=== PATIENT | male | born 1955 | race Two or more races ===

== ENCOUNTER 2022-07-27 22:32 | Inpatient (IN) | payer MEDICARE, OTHER ==
[~2022-07-27] VITALS: Ht 170.2 cm; Wt 46.7 kg
--- NOTE | 2022-07-27 22:36 | NUR ---
BIBRA78. SOB DESATURATION 84 ON RA PER EMS. 93% ON NRB 15LPM. PATIENT ALERT AND ORIENTED X2. BROUGHT IN BY STRETCHER. IN BED 07 ON MONITOR AND POX, AWAITING MD BUSTAMANTE.
--- NOTE | 2022-07-27 22:42 | NUR ---
COVID SWAB COLLECTED
--- NOTE | 2022-07-27 22:42 | NUR ---
BLOOD AND CULTURES COLLECTED
--- NOTE | 2022-07-27 22:42 | NUR ---
IV LINE ESTABLISHED. [id number]
--- NOTE | 2022-07-27 22:43 | NUR ---
RT AT BEDSIDE
--- NOTE | 2022-07-27 22:45 | NUR ---
URINE COLLECTED AND SENT TO LAB
[2022-07-27 23:19] LABS: BASOPHILS % (AUTO) 0.1 % (0.0-2.0); EOSINOPHILS % (AUTO) 0.1 % (0.0-6.0); HEMATOCRIT 36 % (39-51); HEMOGLOBIN 11.5 g/dL (13.5-17.5); LYMPHOCYTES % (AUTO) 33.4 % (20.0-44.0); MEAN CORPUSCULAR HGB CONC 32 g/dl (31.0-36.0); MEAN CORPUSCULAR VOLUME 79 fL (80-96); MONOCYTES # (AUTO) 0.1 K/uL (0.1-1.30); MONOCYTES % (AUTO) 4.3 % (2.0-12.0); NEUTROPHILS # (AUTO) 1.9 K/uL (1.8-8.9); NEUTROPHILS % (AUTO) 62.1 % (43.0-81.0); PLATELET COUNT (AUTO) 324 K/uL (150-450); RED BLOOD CELL COUNT(AUTO) 4.62 MIL/uL (4.5-6.0)
[2022-07-27 23:20] LABS: BILIRUBIN,URINE SMALL (NEGATIVE); COLOR,URINE DARK YELLOW (YELLOW); LEUKOCYTE ESTERASE ,URINE NEGATIVE (NEGATIVE); NITRITE, URINE NEGATIVE (NEGATIVE); PROTEIN,URINE 100 mg/dl (NEGATIVE); UGLUCOSE NEGATIVE (NEGATIVE)
--- NOTE | 2022-07-27 23:32 | NUR ---
LA 5.7
[2022-07-27 23:42] LABS: ALANINE AMINOTRANSFERASE 16 U/L (12-78); ALBUMIN 2.4 g/dL (3.4-5.0); ALKALINE PHOSPHATASE 57 U/L (46-116); ASPARTATE AMINOTRANSFERASE 21 U/L (15-37); BILIRUBIN,DIRECT 0.4 mg/dL (0.0-0.2); CALCIUM, SERUM 9.2 mg/dL (8.5-10.1); CARBON DIOXIDE 20 mmol/L (21-32); CHLORIDE 106 mmol/L (98-107); CREATININE 1.8 mg/dL (0.6-1.3); GLUCOSE 147 mg/dL (74-106); POTASSIUM 3.8 mmol/L (3.5-5.1); SODIUM SERUM 142 mmol/L (136-145); TOTAL PROTEIN, SERUM 7.2 g/dL (6.4-8.2); UREA NITROGEN, BLOOD 46 mg/dL (7-18)
[2022-07-27] MEDS ORDERED: VANCOMYCIN 1 GM VIAL ONE (23:53)
[2022-07-27] MEDS ORDERED: PIPERACILLIN /TAZOBACTAM 3.375 G VIAL IV ONE (23:53)
--- NOTE | 2022-07-27 23:53 | NUR ---
COVID PCR DONE AND SENT TO LAB
--- NOTE | 2022-07-27 23:56 | NUR ---
DR DYER PAGED PER DR GUTNER.
[2022-07-28] MEDS ORDERED: PIPERACILLIN /TAZOBACTAM 3.375 G in IV D5W 50 ML IV ONE ×2
[2022-07-28] MEDS ORDERED: VANCOMYCIN 1 GM in IV D5W 250 ML IV ONE ×2
[2022-07-28] MEDS ORDERED: AMIN30LI2 PO (00:27)
[2022-07-28] MEDS ORDERED: GABA-532 PO (00:27)
[2022-07-28] MEDS ORDERED: MELA3CAP2 PO (00:27)
[2022-07-28] MEDS ORDERED: ACET325T53 PO (00:27)
[2022-07-28] MEDS ORDERED: INSU100V39 SQ (00:27)
[2022-07-28] MEDS ORDERED: TICA90TA PO (00:27)
[2022-07-28] MEDS ORDERED: HYDR-4303 PO (00:27)
[2022-07-28] MEDS ORDERED: CHOL100040 PO (00:27)
[2022-07-28] MEDS ORDERED: METF-440 PO (00:27)
[2022-07-28] MEDS ORDERED: LORA10TA7 PO (00:27)
[2022-07-28] MEDS ORDERED: ASPI-1169 PO (00:27)
[2022-07-28] MEDS ORDERED: APIX5TAB PO (00:27)
[2022-07-28] MEDS ORDERED: ATOR40TA PO (00:27)
[2022-07-28] MEDS ORDERED: ONDA4TAB11 PO (00:27)
--- NOTE | 2022-07-28 00:34 | NUR ---
DR DYER REPAGED PER DR GUNTER.
[2022-07-28] MEDS ORDERED: ALBUTEROL FS 2.5 MG/0.5 ML VIAL.NEB NEB PRN (01:30)
[2022-07-28] MEDS ORDERED: ACETAMINOPHEN 325 MG TABLET PO PRN (01:30)
[2022-07-28] MEDS ORDERED: Z GUARD REMEDY 4 OZ OINT TP PRN (01:30)
[2022-07-28] MEDS ORDERED: ZOLPIDEM TARTRATE 5 MG TABLET PO PRN (01:30)
[2022-07-28] MEDS ORDERED: DEXTROSE 50%-WATER 50 ML DISP.SYRIN IV PRN (01:30)
[2022-07-28] MEDS ORDERED: MAG HYDROX/AL HYDROX/SIMETH 30 ML UDC PO PRN (01:30)
[2022-07-28] MEDS ORDERED: ONDANSETRON HCL/PF 4 MG/2 ML VIAL IVP PRN (01:30)
[2022-07-28] MEDS ORDERED: MAGNESIUM HYDROXIDE 30 ML UDC PO PRN (01:30)
--- NOTE | 2022-07-28 02:22 | NUR ---
ROOM 104
[2022-07-28 02:33] LABS: BACTERIA,URINE Rare /HPF (None Seen); RBC,URINE TOO NUMEROUS TO COUN /HPF (0-2); SQUAMOUS EPITHELIAL CELL,UR Few /HPF (None Seen)
--- NOTE | 2022-07-28 02:56 | NUR ---
report given to elly reyes
[2022-07-28 02:59] LABS: BAND % (MANUAL) 2 % (0.0-5.0); BASOPHILS % (MANUAL) 0 % (0.0-2.0); EOSINOPHILS % (MANUAL) 0 % (0-4); LYMPHOCYTES % (MANUAL) 31 % (16-48); MONOCYTES % (MANUAL) 4 % (0-11.0); NEUTROPHILS % (MANUAL) 63 (42-76)
--- NOTE | 2022-07-28 03:10 | NUR ---
RN NOTES; PT RECEIVED FROM ER WITH JOSELUIS IN RM 104 NOTED 8L O2 VIA NC EN WELL SATTING 97.4%,AOX1-2 WITH CONFUSION.NO SIGN SOB/DISTRESS NOTED.NO COMPLAINE OF PAIN/DISCOMFORT AT THIS TIME,IV ACCESS ON RFA 18G AND LAC 18G.INTACT AND PATENT.NO SWOLLEN OR BLEEDING NOTED.SAFETY MEASURED INPLACE,CALL LIGHT WITHIN REACH,WILL CONTINUE TO MONITOR.
--- NOTE | 2022-07-28 03:20 | NUR ---
PATIENT TRANSFERRED UNDER ACLS
[2022-07-28 04:00] VITALS: BP 114/66
[2022-07-28] MEDS: IV NS 0.9% 1,000 ML IV PRN (04:51)
[2022-07-28] MEDS ORDERED: PIPERACILLIN /TAZOBACTAM 3.375 G VIAL IV ONE (04:53)
[2022-07-28] MEDS ORDERED: ZOSYN IVPB 3.375 G in IV D5W 50ml IV ONE (06:00)
--- NOTE | 2022-07-28 06:43 | NUR ---
RN CLOSING NOTES; PT IN BED SLEEPING BUT EASY TO AROUSED,ON 8L O2 VIA NC EN WELL NO SIGN SOB/DISTRESS NOTED.DUE MEDS GIVEN ORDER,ALL NEEDS ATTENDED,IV ACCESS ON RFA 18G AND LAC 18G.INTACT AND PATENT.SAFETY MEASURED INPLACE,CALL LIGHT WITHIN REACH,WILL ENDORSED TO NEXT SHIFT.
--- NOTE | 2022-07-28 07:25 | NUR ---
PSYCH THERAPIST OPENING NOTES: RECEIVED PATIENT IN BED ASLEEP BUT EASILY AROUSES TO VOICE AND TACTILE STIMULI. PATIENT HAS NO RESPIRATORY DISTRESS NOTED. ALERT AND ORIENTED X 1 WITH PERIODS OF CONFUSION. ON SR ON TELE MONITOR WITH HR OF 90. HAS IV ACCESS ON LEFT FOREARM RUNNING WITH NS @ 100 ML/HR, PATENT, NO S/S OF INFILTRATION. ALSO HAS SALINE LOCK ON RIGHT FOREARM, FLUSHES WELL. WILL TURN AND REPOSITION EVERY 2 HOURS AND WILL KEEP PATIENT CLEAN AND DRY AT ALL TIMES. BED LOCKED AND IN LOWEST POSITION, CALL LIGHT WITHIN REACH. WILL CONTINUE TO MONITOR PATIENT THROUGHOUT SHIFT.
[2022-07-28] MEDS: METFORMIN 500 MG TABLET PO SCH ×2 (07:27→17:35)
[2022-07-28] MEDS: PANTOPRAZOLE 40 MG TABLET.DR PO SCH (07:27)
--- NOTE | 2022-07-28 07:55 | NUR ---
WOUND CARE CONSULT: REVIEWED CHART, NURSING DOCUMENTATION AND PHOTOS WHICH INDICATE BILATERAL BELOW KNEE AMPUTATION STUMPS WITH JIM TO RT STUMP, PRESENT ON ADMISSION. RECOMMENDATIONS MADE FOR SKIN PROTECTION. DISCUSSED WITH NURSING STAFF. DR JOHNSON CALLED FOR DPM CONSULT REQUEST. MD IN AGREEMENT WITH PLAN OF CARE.
[2022-07-28] MEDS: BLOOD SUGAR DIAGNOSTIC 1 EACH STRIP VI SCH ×4 (07:57→21:04)
[2022-07-28 08:00] VITALS: BP 101/65
[2022-07-28] MEDS: INSULIN REGULAR, HUMAN 100 UNIT/ML 3 ML VIAL SQ PRN ×2 (08:03→18:01)
[2022-07-28] MEDS: GABAPENTIN 100 MG CAPSULE PO SCH ×3 (08:15→17:35)
[2022-07-28] MEDS: ASPIRIN 81 MG TAB.CHEW PO SCH (08:15)
[2022-07-28] MEDS: DOCUSATE SODIUM 100 MG CAPSULE PO SCH ×2 (08:15→17:35)
[2022-07-28] MEDS: APIXABAN 5 MG TABLET PO SCH ×2 (08:19→17:38)
[2022-07-28] MEDS: TICAGRELOR 90 MG TABLET PO SCH ×2 (08:20→17:58)
[2022-07-28] MEDS: PIPERACILLIN /TAZOBACTAM 3.375 G in IV D5W 100 ML IV SCH ×2 (11:04→18:53)
[2022-07-28 12:00] VITALS: BP 108/66
[2022-07-28] MEDS ORDERED: PIPERACILLIN /TAZOBACTAM 3.375 G in IV D5W 50 ML IV SCH (12:00)
[2022-07-28] MEDS ORDERED: SULFAMETHOXAZOLE/TRIMETHOPRIM 15 ML in IV D5W 500 ML IV SCH (12:30)
[2022-07-28] MEDS: methylPREDNISolone SOD SUCC 125 MG/2ML VIAL IV SCH ×2 (13:27→17:35)
[2022-07-28] MEDS: SULFAMETHOXAZOLE IV SCH ×2 (15:36→21:09)
[2022-07-28] MEDS: D5W IV SCH ×2 (15:36→21:09)
[2022-07-28] MEDS: TRIMETHOPRIM IV SCH ×2 (15:36→21:09)
[2022-07-28 16:00] VITALS: BP 102/62
--- NOTE | 2022-07-28 18:59 | NUR ---
SHAKE BACKBOARD NOTCHER CLOSING NOTES: PATIENT IN BED, ASLEEP BUT EASILY AROUSES TO VOICE AND TOUCH. ON OXYGEN VIA FACE MASK @8 L/MIN SATURATION OF 98%. NO RESPIRATORY DISTRESS NOTED. ON SR AT TELE MONITOR WITH HR OF 92. IV ACCESS ON LFA WITH NS @ 75 ML/HR, NO S/S INFILTRATION. PATIENT KEPT COMFORTABLE AT ALL TIMES. PATIENT WAS NOTED TO HAVE DIFFICULTY SWALLOWING CRUSHED MEDS AND TOOK A WHILE TO TAKE MEDS, HAS EPISODES OF KEEPING FOOD IN THE MOUTH. WILL ENDORSE TO NEXT SHIFT NURSE FOR CONTINUOUS MONITORING.
--- NOTE | 2022-07-28 19:30 | NUR ---
RECEIVED PATIENT ASLEEP IN BED, ASLEEP BUT EASILY AROUSES TO VOICE AND TOUCH. ON OXYGEN VIA FACE MASK @8 L/MIN, SATURATION IS AT 98%. NO RESPIRATORY DISTRESS NOTED. ON SR AT TELE MONITOR WITH HR AT 90'S. IV ACCESS ON LFA PATENT AND INFUSING NS @ 75 ML/HR, NO S/S INFILTRATION. ON DIAPER. SAFETY MEASURES IN PLACE, SIDE RAILS UP X2, BED ALARM ON, BED LOCKED IN LOWEST POSITION. TABLE AND CALL LIGHT WITHIN REACH. WILL CONTINUE PLAN OF CARE.
[2022-07-28 20:00] VITALS: BP 114/70
[2022-07-28] MEDS: ATORVASTATIN 40 MG TABLET PO SCH (21:06)
[2022-07-28] MEDS: VANCOMYCIN 0.75 GM in IV D5W 250 ML IV SCH (22:16)
[2022-07-29] VITALS: BP 121/71
[2022-07-29] MEDS: PIPERACILLIN /TAZOBACTAM 3.375 G in IV D5W 100 ML IV SCH ×3 (02:00→17:29)
[2022-07-29] MEDS: IV NS 0.9% 1,000 ML IV PRN ×2 (02:37→20:51)
[2022-07-29 04:00] VITALS: BP 133/68
[2022-07-29] MEDS: SULFAMETHOXAZOLE IV SCH (05:44)
[2022-07-29] MEDS: TRIMETHOPRIM IV SCH (05:44)
[2022-07-29] MEDS: D5W IV SCH (05:44)
--- NOTE | 2022-07-29 07:30 | NUR ---
MANDOLIN REPAIR PERSON NOTES RECEIVED PATIENT IN BED WITH CLOSED EYES BUT EASILY AROUSES TO VOICE AND TOUCH. ALERT AND ORIENTED TIMES 2.ON OXYGEN VIA FACE MASK @8 L/MIN, SATURATION IS AT 95%. NO RESPIRATORY DISTRESS NOTED. ON TELE MONITOR READING SR. IV ACCESS ON LFA PATENT AND INFUSING NS @ 75 ML/HR, NO S/S INFILTRATION. ON DIAPER. SAFETY MEASURES IN PLACE, SIDE RAILS UP X2, BED ALARM ON, BED LOCKED IN LOWEST POSITION. TABLE AND CALL LIGHT WITHIN REACH. WILL CONTINUE PLAN OF CARE.
--- NOTE | 2022-07-29 07:30 | NUR ---
RN NOTES HELD INSULIN . BLOOD SUGAR 181. PATIENT AWAITING FOR SWALLOW EVALUATION AND NOT EATING.
[2022-07-29 08:00] VITALS: BP 122/70
[2022-07-29 08:07] LABS: HEMATOCRIT 30 % (39-51); HEMOGLOBIN 9.6 g/dL (13.5-17.5); LYMPHOCYTES # (AUTO) 0.5 K/uL (0.8-4.8); LYMPHOCYTES % (AUTO) 10.3 % (20.0-44.0); MEAN CORPUSCULAR HGB CONC 32 g/dl (31.0-36.0); MEAN CORPUSCULAR VOLUME 78 fL (80-96); MONOCYTES # (AUTO) 0.1 K/uL (0.1-1.30); MONOCYTES % (AUTO) 2.3 % (2.0-12.0); NEUTROPHILS # (AUTO) 4.6 K/uL (1.8-8.9); NEUTROPHILS % (AUTO) 87.4 % (43.0-81.0); PLATELET COUNT (AUTO) 237 K/uL (150-450); RED BLOOD CELL COUNT(AUTO) 3.85 MIL/uL (4.5-6.0); WHITE BLOOD COUNT (AUTO) 5.3 K/uL (4.3-11.0)
[2022-07-29 08:08] LABS: CALCIUM, SERUM 9.1 mg/dL (8.5-10.1); CREATININE 1.2 mg/dL (0.6-1.3); MAGNESIUM 1.9 mg/dL (1.8-2.4)
[2022-07-29] MEDS: BLOOD SUGAR DIAGNOSTIC 1 EACH STRIP VI SCH ×4 (08:42→22:04)
[2022-07-29] MEDS: PANTOPRAZOLE 40 MG TABLET.DR PO SCH (09:33)
[2022-07-29] MEDS: METFORMIN 500 MG TABLET PO SCH ×2 (09:33→17:29)
[2022-07-29] MEDS: methylPREDNISolone SOD SUCC 125 MG/2ML VIAL IV SCH ×2 (09:33→16:23)
[2022-07-29] MEDS: ASPIRIN 81 MG TAB.CHEW PO SCH (09:42)
[2022-07-29] MEDS: DOCUSATE SODIUM 100 MG CAPSULE PO SCH ×2 (09:42→16:23)
[2022-07-29] MEDS: GABAPENTIN 100 MG CAPSULE PO SCH ×3 (09:43→16:23)
[2022-07-29] MEDS: APIXABAN 5 MG TABLET PO SCH ×2 (09:44→16:25)
[2022-07-29] MEDS: TICAGRELOR 90 MG TABLET PO SCH ×2 (09:46→16:35)
[2022-07-29] MEDS: POTASSIUM CHLORIDE 20 MEQ TAB.PRT.SR PO SCH ×3 (11:03→13:50)
[2022-07-29 12:00] VITALS: BP 126/72
--- NOTE | 2022-07-29 12:00 | NUR ---
RN NOTES HELD INSULIN , BLOOS SUGAR 132. PATIENT IS NOT EATING.
[2022-07-29] MEDS: HYDROCODONE/APAP 5/325MG TABLET PO PRN ×2 (12:12→23:18)
[2022-07-29] MEDS: SULFAMETHOXAZOLE/TRIMETHOPRIM 15 ML in IV D5W 500 ML IV SCH ×2 (14:10→21:59)
[2022-07-29 16:08] VITALS: BP 109/57
--- NOTE | 2022-07-29 18:33 | NUR ---
RN NOTES HELD INSULIN FOR 1700. BLOOD SUGAR 189. METFORMIN GIVEN. PATIENT IS NOT EATING.
--- NOTE | 2022-07-29 18:34 | NUR ---
LAMP ASSEMBLER CLOSING NOTES PATIENT IN BED WITH CLOSED EYES BUT EASILY AROUSES UPON CALLING HIS NAME.. ALERT AND ORIENTED TIMES 2-3.ON OXYGEN VIA FACE MASK @8 L/MIN, SATURATION IS AT 96%. NO RESPIRATORY DISTRESS NOTED. ON TELE MONITOR READING SR. IV ACCESS ON LFA PATENT AND INFUSING NS @ 75 ML/HR, AND ZOSIN ATB IS RUNNING. ALL DUE MEDS GIVEN ORDERED. CRUSHED ALL MEDS. HOB ELEVATEDALL THE TIMES. ASPIRATION PRECAUTION. PATIENT IS NOT EATING .ON DIAPER. SAFETY MEASURES IN PLACE, SIDE RAILS UP X2, BED ALARM ON, BED LOCKED IN LOWEST POSITION. TABLE AND CALL LIGHT WITHIN REACH. WILL ENDORSE FOR EDWARD..
--- NOTE | 2022-07-29 19:30 | NUR ---
RECEIVED PATIENT IN BED ASLEEP BUT EASILY AROUSES UPON CALLING HIS NAME. A/0 X2. ON OXYGEN VIA FACE MASK @8 L/MIN, SATURATION IS AT 96%. NO RESPIRATORY DISTRESS NOTED. ON TELE MONITOR READING SR. IV ACCESS ON LFA PATENT AND INFUSING NS @ 75 ML/HR.IV ACCESS ON LT AC PATENT AND FLUSHING WELL. HOB ELEVATED FOR ASPIRATION PRECAUTION. PATIENT IS NOT EATING .ON DIAPER. SAFETY MEASURES IN PLACE, SIDE RAILS UP X2, BED ALARM ON, BED LOCKED IN LOWEST POSITION. TABLE AND CALL LIGHT WITHIN REACH. WILL CONTINUE PLAN OF CARE.
[2022-07-29 20:00] VITALS: BP 108/61
[2022-07-29] MEDS: ATORVASTATIN 40 MG TABLET PO SCH (22:00)
[2022-07-29] MEDS: VANCOMYCIN 0.75 GM in IV D5W 250 ML IV SCH (22:00)
[2022-07-29] MEDS: INSULIN REGULAR, HUMAN 100 UNIT/ML 3 ML VIAL SQ PRN (22:03)
[2022-07-30] VITALS: BP_SYST 109; BP_SYST 119; BP_DIAS 66; BP_DIAS 69
[2022-07-30] MEDS: PIPERACILLIN /TAZOBACTAM 3.375 G in IV D5W 100 ML IV SCH ×3 (01:01→18:50)
[2022-07-30 04:00] VITALS: BP 107/62
[2022-07-30] MEDS: SULFAMETHOXAZOLE/TRIMETHOPRIM 15 ML in IV D5W 500 ML IV SCH ×3 (05:56→22:12)
[2022-07-30 06:16] LABS: CALCIUM, SERUM 8.3 mg/dL (8.5-10.1); CREATININE 1.1 mg/dL (0.6-1.3)
--- NOTE | 2022-07-30 06:37 | NUR ---
PATIENT IN BED ASLEEP, EASILY AWAKEN UPON CALLING HIS NAME. ALERT AND ORIENTED TIMES 2-3. ON OXYGEN VIA FACE MASK @8 LPM, SATURATION IS AT 95%. NO RESPIRATORY DISTRESS NOTED. ON TELE MONITOR READING SR. IV ACCESS ON LFA PATENT AND INFUSING NS @ 75 ML/HR. ALL DUE MEDS GIVEN ORDERED. CRUSHED ALL MEDS. HOB ELEVATED FOR ASPIRATION PRECAUTION. ON DIAPER. SAFETY MEASURES IN PLACE, SIDE RAILS UP X2, BED ALARM ON, BED LOCKED IN LOWEST POSITION. TABLE AND CALL LIGHT WITHIN REACH. WILL ENDORSE TO NEXT NURSE ON DUTY FOR CONTINUITY OF CARE.
--- NOTE | 2022-07-30 07:10 | NUR ---
RN OPENING NOTE RECEIVED PATIENT IN BED A/0 X3. ON OXYGEN VIA FACE MASK @8 L/MIN, SATURATION IS AT 96%. NO RESPIRATORY DISTRESS OR SOB NOTED. ON TELE MONITOR READING SR. IV ACCESS ON LFA PATENT AND INFUSING NS @ 75 ML/HR.IV ACCESS ON LT AC PATENT AND FLUSHING WELL. HOB ELEVATED FOR ASPIRATION PRECAUTIONS. ALL SAFETY MEASURES IN PLACE, SIDE RAILS UP X2, BED ALARM ON, BED LOCKED IN LOWEST POSITION. TABLE AND CALL LIGHT WITHIN REACH. WILL CONTINUE PLAN OF CARE.
[2022-07-30] MEDS: PANTOPRAZOLE 40 MG TABLET.DR PO SCH (07:48)
[2022-07-30] MEDS: METFORMIN 500 MG TABLET PO SCH ×2 (07:48→18:50)
[2022-07-30 08:00] VITALS: BP 114/80
[2022-07-30] MEDS: BLOOD SUGAR DIAGNOSTIC 1 EACH STRIP VI SCH ×4 (08:39→22:11)
[2022-07-30] MEDS: methylPREDNISolone SOD SUCC 125 MG/2ML VIAL IV SCH ×2 (09:08→16:55)
[2022-07-30] MEDS: DOCUSATE SODIUM 100 MG CAPSULE PO SCH ×2 (09:09→16:55)
[2022-07-30] MEDS: ASPIRIN 81 MG TAB.CHEW PO SCH (09:09)
[2022-07-30] MEDS: GABAPENTIN 100 MG CAPSULE PO SCH ×3 (09:09→16:56)
[2022-07-30] MEDS: APIXABAN 5 MG TABLET PO SCH ×2 (09:12→16:56)
[2022-07-30] MEDS: INSULIN REGULAR, HUMAN 100 UNIT/ML 3 ML VIAL SQ PRN ×2 (09:13→22:23)
[2022-07-30] MEDS: TICAGRELOR 90 MG TABLET PO SCH ×2 (09:14→16:55)
[2022-07-30 12:00] VITALS: BP 116/66
[2022-07-30] MEDS: IV NS 0.9% 1,000 ML IV PRN (14:15)
[2022-07-30 16:00] VITALS: BP 124/69
--- NOTE | 2022-07-30 19:20 | NUR ---
RN CLOSING NOTE RECEIVED PATIENT IN BED A/0 X3. ON OXYGEN VIA FACE MASK @8 L/MIN, SATURATION IS AT 99%. NO RESPIRATORY DISTRESS OR SOB NOTED. ON TELE MONITOR READING SR. IV ACCESS ON LFA PATENT AND INFUSING NS @ 75 ML/HR.IV ACCESS ON LT AC PATENT AND FLUSHING WELL. HOB ELEVATED FOR ASPIRATION PRECAUTIONS. ALL SAFETY MEASURES IN PLACE, SIDE RAILS UP X2, BED ALARM ON, BED LOCKED IN LOWEST POSITION. TABLE AND CALL LIGHT WITHIN REACH. WILL ENDORSE TO AMMUNITION SUPERVISOR NURSE FOR CONTINUITY OF CARE.
--- NOTE | 2022-07-30 19:30 | NUR ---
RECEIVED PATIENT IN BED AWAKE. A/0 X2-3. ON OXYGEN VIA FACE MASK @8 L/MIN, SATURATION IS AT 96%. NO RESPIRATORY DISTRESS NOTED. ON TELE MONITOR READING SR. IV ACCESS ON LFA PATENT AND INFUSING NS @ 75 ML/HR. IV ACCESS ON LT AC PATENT AND FLUSHING WELL. HOB ELEVATED FOR ASPIRATION PRECAUTION. PATIENT IS NOT EATING. ON DIAPER. SAFETY MEASURES IN PLACE, SIDE RAILS UP X2, BED ALARM ON, BED LOCKED IN LOWEST POSITION. TABLE AND CALL LIGHT WITHIN REACH. WILL CONTINUE PLAN OF CARE.
[2022-07-30 20:00] VITALS: BP 118/69
[2022-07-30] MEDS: ATORVASTATIN 40 MG TABLET PO SCH (22:12)
[2022-07-30] MEDS: VANCOMYCIN 0.75 GM in IV D5W 250 ML IV SCH (22:23)
[2022-07-31] VITALS: BP 130/68
[2022-07-31] MEDS: PIPERACILLIN /TAZOBACTAM 3.375 G in IV D5W 100 ML IV SCH ×3 (01:03→17:08)
[2022-07-31] MEDS: HYDROCODONE/APAP 5/325MG TABLET PO PRN ×2 (01:04→17:13)
[2022-07-31] MEDS: IV NS 0.9% 1,000 ML IV PRN ×2 (03:44→17:38)
[2022-07-31 04:00] VITALS: BP 137/71
[2022-07-31] MEDS: SULFAMETHOXAZOLE/TRIMETHOPRIM 15 ML in IV D5W 500 ML IV SCH ×3 (05:22→21:01)
--- NOTE | 2022-07-31 06:42 | NUR ---
PATIENT IN BED ASLEEP BUT EASILY AWAKEN BY CALLING HIS NAME. A/0 X2-3. ON OXYGEN VIA FACE MASK @8 L/MIN, SATURATION IS AT 96%. NO RESPIRATORY DISTRESS NOTED. ON TELE MONITOR READING SR. IV ACCESS ON LFA PATENT AND INFUSING NS @ 75 ML/HR. IV ACCESS ON LT AC PATENT AND FLUSHING WELL. HOB ELEVATED FOR ASPIRATION PRECAUTION. PATIENT IS NOT EATING. ON DIAPER. SAFETY MEASURES IN PLACE, SIDE RAILS UP X2, BED ALARM ON, BED LOCKED IN LOWEST POSITION. TABLE AND CALL LIGHT WITHIN REACH. WILL ENDORSE TO NEXT NURSE ON DUTY FOR CONTINUITY OF CARE.
[2022-07-31 06:49] LABS: CALCIUM, SERUM 8.2 mg/dL (8.5-10.1); POTASSIUM 4.1 mmol/L (3.5-5.1)
--- NOTE | 2022-07-31 07:10 | NUR ---
TESTING ENGINEER OPENING NOTE: RECEIVED PT. IN BED, AWAKE, AOX3-4, ABLE TO VERBALIZE NEEDS. NO COMPLAINTS OF PAIN. ON O2 @ 8L VIA SIMPLE MASK, SATURATING WELL. NO S/S OF RESPIRATORY DISTRESS. INSPECTION MACHINE TENDER READS NSR @ 62 BPM. ON DIAPER VOIDING YELLOW URINE. PT. HAS R BKA STUMP WITH JIM, DRESSING C/D/I. NO S/S OF BLEEDING. HIS LEFT FOOT DIGITS WERE ALSO AMPUTATED, DRY AND HEALED. WILL DO WOUND TREATMENT ORDERED. ON CONSISTENT CARB PUREED DIET. IV ACCESS ON L AC#22G, SALINE LOCKED AND L FA #20G WITH NS RUNNING AT 75ML/HR. IV SITES FLUSHING WELL, DRESSINGS C/D/I WITH NO S/S OF INFILTRATION. SAFETY MEASURES IN PLACE: BED IN LOWEST AND LOCKED POSITION, CALL LIGHT WITHIN EASY REACH, HOB ELEVATED AT 30 DEGREES, BED ALARM ON, WILL TURN AND REPOSITION AT LEAST Q2H. WILL CONTINUE TO MONITOR PT. FOR ANY CHANGES.
[2022-07-31] MEDS: ASPIRIN 81 MG TAB.CHEW PO SCH (07:58)
[2022-07-31] MEDS: PANTOPRAZOLE 40 MG TABLET.DR PO SCH (07:58)
[2022-07-31] MEDS: GABAPENTIN 100 MG CAPSULE PO SCH ×3 (07:58→17:09)
[2022-07-31] MEDS: TICAGRELOR 90 MG TABLET PO SCH ×2 (07:58→17:09)
[2022-07-31] MEDS: METFORMIN 500 MG TABLET PO SCH ×2 (07:59→17:11)
[2022-07-31 08:00] VITALS: BP 129/72
[2022-07-31] MEDS: methylPREDNISolone SOD SUCC 125 MG/2ML VIAL IV SCH ×2 (08:00→17:09)
[2022-07-31] MEDS: DOCUSATE SODIUM 100 MG CAPSULE PO SCH ×2 (08:01→17:11)
[2022-07-31] MEDS: APIXABAN 5 MG TABLET PO SCH ×2 (08:01→17:11)
[2022-07-31] MEDS: BLOOD SUGAR DIAGNOSTIC 1 EACH STRIP VI SCH ×4 (08:44→22:27)
[2022-07-31] MEDS: INSULIN REGULAR, HUMAN 100 UNIT/ML 3 ML VIAL SQ PRN ×2 (08:44→22:32)
--- NOTE | 2022-07-31 10:00 | NUR ---
WEBSITE ADMIN NOTE: CHANGED O2 SUPPLEMENTATION FROM 8L/MIN SIMPLE MASK TO 6L/MIN NC. SATURATING AT 96%. WILL CONTINUE TO MONITOR 02 SAT.
[2022-07-31 12:00] VITALS: BP 98/57
[2022-07-31 16:00] VITALS: BP 113/61
--- NOTE | 2022-07-31 19:10 | NUR ---
LIVE IN CAREGIVER CLOSING NOTE: PT. REMAINS IN BED, AWAKE, AOX3-4, ABLE TO VERBALIZE NEEDS. COMPLAINED OF 7/10 PAIN AT 1700. NORCO GIVEN. NO COMPLAINTS OF PAIN NOW. ON O2 @ 6L VIA NC, SATURATING WELL. NO S/S OF RESPIRATORY DISTRESS. CO SUPERVISOR GROUNDS AND LANDSCAPE READS NSR @ 67 BPM. ON DIAPER VOIDING YELLOW URINE. PT. HAS R BKA STUMP WITH JIM, DRESSING CHANGED ORDERED. NO S/S OF BLEEDING. REMAINS ON CONSISTENT CARB PUREED DIET, POOR ORAL INTAKE. IV ACCESS ON L AC#22G, SALINE LOCKED AND L FA #20G WITH NS RUNNING AT 75ML/HR. IV SITES FLUSHING WELL, DRESSINGS C/D/I WITH NO S/S OF INFILTRATION. SAFETY MEASURES MAINTAINED: BED IN LOWEST AND LOCKED POSITION, CALL LIGHT WITHIN EASY REACH, HOB ELEVATED AT 30 DEGREES, BED ALARM ON, TURNED AND REPOSITION AT LEAST Q2H. WILL ENDORSE CONTINUITY OF CARE TO OPTICAL MECHANIC APPRENTICE RN.
[2022-07-31 20:00] VITALS: BP 128/73
[2022-07-31] MEDS: ATORVASTATIN 40 MG TABLET PO SCH (22:32)
[2022-07-31] MEDS ORDERED: VANCOMYCIN 1 GM in IV D5W 250ml IV SCH (23:00)
[2022-08-01] VITALS (7 sets, daily range): BP systolic 103–147; BP diastolic 61–82
[2022-08-01] MEDS: PIPERACILLIN /TAZOBACTAM 3.375 G in IV D5W 100 ML IV SCH ×3 (01:47→17:47)
--- NOTE | 2022-08-01 06:45 | NUR ---
GERIATRIC NURSE PRACTITIONER NOTE BACTRIM WAS NO LONGER IN THE CASSETTE. PHARMACY WAS CALLED AND THEY SAID A AUDIO VIDEO REPAIRER PICKED IT UP AND WILL BRING BACK.
[2022-08-01] MEDS: IV NS 0.9% 1,000 ML IV PRN (06:53)
[2022-08-01 06:54] LABS: CREATININE 0.8 mg/dL (0.6-1.3); POTASSIUM 3.9 mmol/L (3.5-5.1)
--- NOTE | 2022-08-01 07:05 | NUR ---
ADMINISTRATIVE ASST CLOSING NOTE PATIENT A/OX3-4, ON O2 6L NC, TOLERATING WELL, ABLE TO MAKE NEEDS KNOWN. VSS. ALL DUE MEDS GIVEN EXCEPT BACTRIM 0600 DOSE. TELE MONITOR READING SR HR 68.BED IN LOWEST AND LOCKED POSITION, CALL LIGHT WITHIN EASY REACH, HOB ELEVATED AT 30 DEGREES, BED ALARM ON, WILL TURN AND REPOSITION AT LEAST Q2H. WILL ENDORSE TO MORNING SHIFT FOR CONTINUATION OF CARE.
[2022-08-01] MEDS: METFORMIN 500 MG TABLET PO SCH ×2 (08:00→17:22)
--- NOTE | 2022-08-01 08:00 | NUR ---
SENIOR BUSINESS ANALYST CLOSING NOTE PATIENT A/OX3-4, ON O2 6L NC, TOLERATING WELL saturation 91% AT THIS TIME ABLE TO MAKE NEEDS KNOWN. VSS. TELE MONITOR READING SR HR 73.BED IN LOWEST AND LOCKED POSITION, CALL LIGHT WITHIN EASY REACH, HOB ELEVATED AT ATT TIME,BED ALARM ON, FED PATIENT BUT BECOME TO COUGH WILL REPORT TO MD , ON IVF ORDERED WILL CONT TO MONITOR
[2022-08-01] MEDS: ASPIRIN 81 MG TAB.CHEW PO SCH (08:36)
[2022-08-01] MEDS: DOCUSATE SODIUM 100 MG CAPSULE PO SCH ×2 (08:36→16:39)
[2022-08-01] MEDS: GABAPENTIN 100 MG CAPSULE PO SCH ×3 (08:36→16:39)
[2022-08-01] MEDS: methylPREDNISolone SOD SUCC 125 MG/2ML VIAL IV SCH ×2 (08:36→16:39)
[2022-08-01] MEDS: APIXABAN 5 MG TABLET PO SCH ×2 (08:37→16:40)
[2022-08-01] MEDS: BLOOD SUGAR DIAGNOSTIC 1 EACH STRIP VI SCH ×4 (08:38→22:28)
[2022-08-01] MEDS: TICAGRELOR 90 MG TABLET PO SCH ×2 (08:38→16:39)
[2022-08-01] MEDS: SULFAMETHOXAZOLE/TRIMETHOPRIM 15 ML in IV D5W 500 ML IV SCH ×2 (08:38→16:33)
[2022-08-01] MEDS: PANTOPRAZOLE 40 MG TABLET.DR PO SCH (08:39)
--- NOTE | 2022-08-01 10:42 | NUR ---
SCHOOL CHILD CARE ATTENDANT NOTE DR MENSAH COMBINING MACHINE OPERATOR MADE ROUND NOTIFIED THAT PATIENT STILL COUGH AND CONGESTION ORDERED CHEST PT WITH RT AND PT KENDAL L WILL F\U
--- NOTE | 2022-08-01 11:03 | NUR ---
PRANAV RN NOTE RT AT BEDSIDE DEEP SUCTION DONE
--- NOTE | 2022-08-01 12:00 | NUR ---
ANALYTICAL LABORATORY TECHNICIAN NOTE CHEST X RAY DONE ORDERED
--- NOTE | 2022-08-01 13:30 | NUR ---
BOAT MASTER NOTE HOLD LUNCH AT THIS TIME PATIENT AT RISK FOR ASPIRATION , WILL INFORM TO DR DYER
--- NOTE | 2022-08-01 14:54 | NUR ---
telecommunications specialist note called to dr osorio notified that patient is difficult to eat and swallow well ,start to cough . per dr osorio called to ann[facility] sa[facility] of [place] left a message , per st recommendation g tube feeding will f\u
--- NOTE | 2022-08-01 15:47 | NUR ---
MENTAL TESTER NOTE PT AT BEDSIDE STILL NEED TOTAL CARE WITH ADLS SPOKE WITH LAILA PRADO DISCUSSED ABOUT G TUBE FEEDING STATED THAT NEED TALK WITH FAMILY WILL F\U
[2022-08-01] MEDS: *INSULIN REGULAR(HUMULIN R)HUM 100 UNIT/ML VIAL SQ PRN ×2 (17:21→22:29)
--- NOTE | 2022-08-01 18:36 | NUR ---
SPRING ENCASER NOTE AT BEDSIDE TRIED TO FEED PATIENT SLOWLY .ABLE TO EAT 25% OF FOOD, WILL CONT TO MONITOR CLOSELY
--- NOTE | 2022-08-01 19:30 | NUR ---
PICKER BOX OPERATOR OPENING NOTE RECEIVED PATIENT AWAKE IN BED, A/OX3-4, ON O2 4L NC, TOLERATING WELL, ABLE TO MAKE NEEDS KNOWN. TELE MONITOR READING SR HR 65. IV ACCESS LAC #22G S/L, INTACT AND PATENT, LFA #SOG RUNNING NS AT 75ML/HR INTACT AND PATENT. PATIENT HAS R BKA, DRESSING CLEAN AND DRY. AND LEFT STUMP W JIM, NO S/S IF INFECTION. BED IN LOWEST AND LOCKED POSITION, CALL LIGHT WITHIN EASY REACH, HOB ELEVATED AT 30 DEGREES, BED ALARM ON, WILL TURN AND REPOSITION AT LEAST Q2H. WILL CONTINUE TO MONITOR.
--- NOTE | 2022-08-01 21:10 | NUR ---
FURNITURE ARRANGER NOTE RECEIVED CRITICAL LAB FROM [facility]. BLOOD CULTURE POSITIVE FOR BUDDING YEAST ON GRAM STAIN. WAITING FOR RESPONSE FROM
--- NOTE | 2022-08-01 22:00 | NUR ---
2200 CRITICAL BLOOD CULTURE RESULT RELAYED TO DR. DYER WITH ORDER MADE.
[2022-08-01] MEDS: ATORVASTATIN 40 MG TABLET PO SCH (22:17)
[2022-08-01] MEDS ORDERED: FLUCONAZOLE IN NS 100 ML IV ONE (22:42)
[2022-08-01] MEDS: MORPHINE SULFATE INJ 2 MG/ML DISP.SYRIN IV PRN (22:42)
[2022-08-01] MEDS: FLUCONAZOLE IN NS 200 MG in PREMIX 1 EA IV SCH ×2 (22:45)
[2022-08-02] VITALS: BP 145/72
[2022-08-02] MEDS: SULFAMETHOXAZOLE/TRIMETHOPRIM 15 ML in IV D5W 500 ML IV SCH ×4 (00:41→23:43)
[2022-08-02] MEDS: PIPERACILLIN /TAZOBACTAM 3.375 G in IV D5W 100 ML IV SCH ×3 (02:46→17:11)
[2022-08-02] MEDS ORDERED: PIPERACILLIN /TAZOBACTAM 3.375 G VIAL IV ONE (03:14)
--- NOTE | 2022-08-02 03:15 | NUR ---
STRATEGIC BUYER NOTE PREVIOUS SCANNED ZOSYN SECONDARY LINE GOT DISCONNECTED FROM PRIMARY MED WASTED. CHARGE NURSE OVERRIDE DOSE.
[2022-08-02 04:00] VITALS: BP 128/71
[2022-08-02] MEDS: IV NS 0.9% 1,000 ML IV PRN (06:27)
--- NOTE | 2022-08-02 06:38 | NUR ---
CROSSING WATCHMAN CLOSING NOTE PATIENT AWAKE IN BED, A/OX3-4, ON O2 4L NC, TOLERATING WELL, ABLE TO MAKE NEEDS KNOWN. TELE MONITOR READING SR HR 65. IV ACCESS LAC #22G S/L, INTACT AND PATENT, LFA #2OG RUNNING NS AT 75ML/HR INTACT AND PATENT. PATIENT HAS R BKA, DRESSING CLEAN AND DRY. AND LEFT STUMP W JIM, NO S/S IF INFECTION. ALL DUE MEDS GIVEN.BED IN LOWEST AND LOCKED POSITION, CALL LIGHT WITHIN EASY REACH, HOB ELEVATED AT 30 DEGREES, BED ALARM ON, WILL ENDORSE TO MORNING SHIFT
[2022-08-02 06:56] LABS: CALCIUM, SERUM 8.4 mg/dL (8.5-10.1); CREATININE 0.9 mg/dL (0.6-1.3); POTASSIUM 3.6 mmol/L (3.5-5.1)
--- NOTE | 2022-08-02 07:20 | NUR ---
RN OPENING NOTE PATIENT IS IN BED, ASLEEP BUT EASILY AROUSABLE, ALERT,ORIENTED X 4. WITH OXYGEN VIA NASAL CANNULA AT 4L/MIN. SINUS RHYTHM ON ENDBAND SIZER. WITH LEFT ANTECUBITAL SALINE LOCK AND LEFT FOREARM IV LINE INFUSING WITH NS AT 75 ML/HR. BREATHING UNLABORED AND NOT IN ANY FORM OF DISTRESS. BED IS LOCKED IN LOWEST POSITION, 3 SIDE RAILS UP, CALL LIGHT WITHIN REACH. WILL CONTINUE TO MONITOR THROUGHOUT SHIFT.
[2022-08-02 08:00] VITALS: BP 120/90
[2022-08-02] MEDS: BLOOD SUGAR DIAGNOSTIC 1 EACH STRIP VI SCH ×4 (08:13→22:50)
[2022-08-02] MEDS: DOCUSATE SODIUM 100 MG CAPSULE PO SCH ×2 (08:30→17:08)
[2022-08-02] MEDS: methylPREDNISolone SOD SUCC 125 MG/2ML VIAL IV SCH ×2 (08:30→17:08)
[2022-08-02] MEDS: GABAPENTIN 100 MG CAPSULE PO SCH ×3 (08:31→17:08)
[2022-08-02] MEDS: ASPIRIN 81 MG TAB.CHEW PO SCH (08:31)
[2022-08-02] MEDS: PANTOPRAZOLE 40 MG TABLET.DR PO SCH (08:31)
[2022-08-02] MEDS: METFORMIN 500 MG TABLET PO SCH ×2 (08:31→17:08)
[2022-08-02] MEDS: APIXABAN 5 MG TABLET PO SCH ×2 (08:34→17:11)
[2022-08-02] MEDS: TICAGRELOR 90 MG TABLET PO SCH ×2 (09:07→17:11)
[2022-08-02 12:00] VITALS: BP 124/69
[2022-08-02] MEDS: INSULIN REGULAR, HUMAN 100 UNIT/ML 3 ML VIAL SQ PRN (12:46)
[2022-08-02] MEDS: MORPHINE SULFATE INJ 2 MG/ML DISP.SYRIN IV PRN ×2 (13:39→19:50)
--- NOTE | 2022-08-02 13:46 | NUR ---
RN NOTE PATIENT VERBALIZED PAIN IN THE LOWER EXTREMITIES. MORPHINE GIVEN IV.
[2022-08-02 16:00] VITALS: BP 118/69
--- NOTE | 2022-08-02 18:53 | NUR ---
RN CLOSING NOTE PATIENT REMAINED STABLE THROUGHOUT THE SHIFT. BREATHING UNLABORED AND NOT IN ANY FORM OF DISTRESS. TOLERATES OXYGEN VIA NASAL CANNULA AT 4L/MIN. SINUS RHYTHM ON TUBE BACKER. ALL IV LINES INTACT AND PATENT. PATIENT WAS MAINTAINED ON ASPIRATION PRECAUTION. WILL ENDORSE TO HAT BODY SORTER NURSE.
--- NOTE | 2022-08-02 19:30 | NUR ---
RN OPENING NOTE RECEIVED PATIENT IN BED, AWAKE, ALERT/ORIENTED X 4. WITH O2 THERAPY VIA NASAL CANNULA AT 4L/MIN. TOLERATING WELL. NO S/SX OF ACUTE RESPIRATORY DISTRESS NOTED AT THIS TIME. SHOWING SINUS RHYTHM ON TELE MONITOR. WITH LEFT AC SALINE LOCK AND LEFT FOREARM IV LINE INFUSING NS AT 75 ML/HR. PT NOTED TO HAVE R BKA WITH STUMP AND LEFT TOES ALL GONE. ALL SAFETY MEASURES IN PLACE: BED LOCKED IN LOWEST POSITION, BED ALARM ON, 3 SIDE RAILS UP, CALL LIGHT WITHIN REACH. WILL CONTINUE TO MONITOR THROUGHOUT SHIFT.
[2022-08-02 20:00] VITALS: BP 143/79
[2022-08-02] MEDS: FLUCONAZOLE IN NS 200 MG in PREMIX 1 EA IV SCH ×2 (22:28)
[2022-08-02] MEDS: ATORVASTATIN 40 MG TABLET PO SCH (22:28)
[2022-08-02] MEDS: *INSULIN REGULAR(HUMULIN R)HUM 100 UNIT/ML VIAL SQ PRN (22:50)
[2022-08-03] VITALS: BP 132/73
[2022-08-03] MEDS: MORPHINE SULFATE INJ 2 MG/ML DISP.SYRIN IV PRN ×3 (01:50→22:15)
[2022-08-03] MEDS: PIPERACILLIN /TAZOBACTAM 3.375 G in IV D5W 100 ML IV SCH ×3 (02:01→18:43)
[2022-08-03 04:00] VITALS: BP 132/73
[2022-08-03 04:06] LABS: *BASOS 0 % (Not Estab.); *EOS 0 % (Not Estab.); *HCT 30.6 % (37.5-51.0); *HGB 9.4 g/dL (13.0-17.7); *IMMATURE GRANULOCYTES 1 % (Not Estab.); *LYMPHOCYTES 10 % (Not Estab.); *LYMPHS, ABSOLUTE 0.6 x10E3/uL (0.7-3.1); *MCH 24.6 pg (26.6-33.0); *MCHC 30.7 g/dL (31.5-35.7); *MCV 80 fL (79-97); *MONOCYTES 1 % (Not Estab.); *MONOS, ABSOLUTE 0.1 x10E3/uL (0.1-0.9); *NEUTROPHILS 88 % (Not Estab.); *NEUTROPHILS, ABSOLUTE 5.3 x10E3/uL (1.4-7.0); *PLT 224 x10E3/uL (150-450); *RBC 3.82 x10E6/uL (4.14-5.80); *RDW 18.1 % (11.6-15.4)
--- NOTE | 2022-08-03 06:42 | NUR ---
RN CLOSING NOTE PT REMAINED STABLE THROUGHOUT THE NIGHT. TELE MONITOR SHOWS SR, O2 SAT AT >98%. ALL DUE MEDS GIVEN. NEEDS ATTENDED TO. WOUND CARE DONE. TURNED AND REPOSITIONED. SAFETY MEASURES IMPLEMENTED. WILL ENDORSE TO AM SHIFT NURSE FOR EDWARD.
--- NOTE | 2022-08-03 07:15 | NUR ---
TLE RN OPENING NOTES: RECEIVED PATIENT IN BED, AWAKE, ALERT/ORIENTED X 3-4. WITH O2 THERAPY VIA NASAL CANNULA AT 4L/MIN. TOLERATING WELL. NO S/SX OF ACUTE RESPIRATORY DISTRESS NOTED AT THIS TIME. SHOWING SINUS RHYTHM ON TELE MONITOR. WITH LEFT AC SALINE LOCK AND LEFT FOREARM IV LINE INFUSING NS AT 75 ML/HR. PT NOTED TO HAVE R BKA WITH STUMP COVERED AND WRAPPED WITH DRESSING. ALL SAFETY MEASURES IN PLACE: BED LOCKED IN LOWEST POSITION, BED ALARM ON, 3 SIDE RAILS UP, CALL LIGHT WITHIN REACH. WILL CONTINUE TO MONITOR THROUGHOUT SHIFT.-
[2022-08-03] MEDS: BLOOD SUGAR DIAGNOSTIC 1 EACH STRIP VI SCH ×4 (07:57→22:05)
[2022-08-03] MEDS: PANTOPRAZOLE 40 MG TABLET.DR PO SCH (07:58)
[2022-08-03 08:00] VITALS: BP 140/77
[2022-08-03] MEDS: METFORMIN 500 MG TABLET PO SCH ×2 (08:01→17:58)
[2022-08-03] MEDS: SULFAMETHOXAZOLE/TRIMETHOPRIM 15 ML in IV D5W 500 ML IV SCH ×2 (08:35→16:42)
[2022-08-03] MEDS: TICAGRELOR 90 MG TABLET PO SCH ×2 (08:50→17:58)
[2022-08-03] MEDS: ASPIRIN 81 MG TAB.CHEW PO SCH (08:51)
[2022-08-03] MEDS: methylPREDNISolone SOD SUCC 125 MG/2ML VIAL IV SCH ×2 (08:51→17:57)
[2022-08-03] MEDS: DOCUSATE SODIUM 100 MG CAPSULE PO SCH ×2 (08:52→17:57)
[2022-08-03] MEDS: GABAPENTIN 100 MG CAPSULE PO SCH ×3 (08:52→17:57)
[2022-08-03] MEDS: APIXABAN 5 MG TABLET PO SCH ×2 (08:54→17:57)
[2022-08-03 11:04] LABS: CALCIUM, SERUM 8.2 mg/dL (8.5-10.1); CREATININE 0.8 mg/dL (0.6-1.3); POTASSIUM 3.9 mmol/L (3.5-5.1)
[2022-08-03 11:05] LABS: *% CD 4 POS. LYMPH 14.1 % (30.8-58.5); *% CD 8 POS. LYMPH 59.7 % (12.0-35.5); *ABSOLUTE CD 4 HELPER 85 /uL (359-1519); *ABSOLUTE CD 8 SUPPRESSOR 358 /uL (109-897); *CD4/CD8 RATIO 0.24 (0.92-3.72)
[2022-08-03 12:00] VITALS: BP 154/75
[2022-08-03] MEDS: INSULIN REGULAR, HUMAN 100 UNIT/ML 3 ML VIAL SQ PRN (12:48)
[2022-08-03 16:00] VITALS: BP 150/70
[2022-08-03] MEDS: IV NS 0.9% 1,000 ML IV PRN (18:04)
--- NOTE | 2022-08-03 19:28 | NUR ---
RN CLOSING NOTE PATIENT REMAINED STABLE THROUGHOUT THE SHIFT. BREATHING UNLABORED AND NOT IN ANY FORM OF DISTRESS. TOLERATES OXYGEN VIA NASAL CANNULA AT 4L/MIN. SINUS RHYTHM ON VESSEL OPERATOR. ALL IV LINES INTACT AND PATENT. PATIENT WAS MAINTAINED ON ASPIRATION PRECAUTION. WILL ENDORSE TO PROGRAM DIRECTOR/TRAFFIC DIRECTOR NURSE.
--- NOTE | 2022-08-03 19:39 | NUR ---
BOLT HEADER OPENING NOTE RECEIVED PATIENT IN BED, AWAKE, ALERT/ORIENTED X 4. WITH O2 THERAPY VIA NASAL CANNULA AT 4L/MIN. TOLERATING WELL. NO S/SX OF ACUTE RESPIRATORY DISTRESS NOTED AT THIS TIME. SHOWING SINUS RHYTHM ON TELE MONITOR. WITH LEFT AC INFUSING BACTRIM AT 250 ML/HR AND LEFT FOREARM IV LINE INFUSING NS AT 75 ML/HR. PT NOTED TO HAVE R BKA WITH STUMP AND LEFT TOES ALL GONE. ALL SAFETY MEASURES IN PLACE: BED LOCKED IN LOWEST POSITION, BED ALARM ON, 3 SIDE RAILS UP, CALL LIGHT WITHIN REACH. WILL CONTINUE TO MONITOR THROUGHOUT SHIFT.
[2022-08-03 20:00] VITALS: BP 149/68
[2022-08-03] MEDS: FLUCONAZOLE (100 MG) 100 MG TABLET PO SCH (21:54)
[2022-08-03] MEDS: ATORVASTATIN 40 MG TABLET PO SCH (21:54)
--- NOTE | 2022-08-03 22:00 | NUR ---
RN NOTE BS CHECKED AT 161 MG/DL, 3 UNITS GIVEN PER SLIDING SCALE.
[2022-08-03] MEDS: *INSULIN REGULAR(HUMULIN R)HUM 100 UNIT/ML VIAL SQ PRN (22:13)
--- NOTE | 2022-08-03 22:15 | NUR ---
RN NOTE PATIENT COMPLAINT OF PAIN ON THE RIGHT LOWER EXTREMITIES RATED 8/10 IN PAIN SCALE. MORPHINE GIVEN PRN ORDER, WASTED PARTIAL DOSE WITH FERNANDO LOW.
[2022-08-04] VITALS: BP 142/65
[2022-08-04] MEDS: SULFAMETHOXAZOLE/TRIMETHOPRIM 15 ML in IV D5W 500 ML IV SCH ×4 (01:28→23:22)
[2022-08-04] MEDS: PIPERACILLIN /TAZOBACTAM 3.375 G in IV D5W 100 ML IV SCH ×2 (01:28→10:11)
[2022-08-04 04:00] VITALS: BP 144/65
--- NOTE | 2022-08-04 07:10 | NUR ---
SOFTWARE PROJECT MANAGER CLOSING NOTE PATIENT IN BED, AWAKE, ALERT/ORIENTED X 3. WITH O2 THERAPY VIA NASAL CANNULA AT 4L/MIN CONNECTED TO HUMIDIFIER. TOLERATING WELL. NO S/SX OF ACUTE RESPIRATORY DISTRESS NOTED AT THIS TIME. SHOWING SINUS VIVIEN AT 50'S ON TELE MONITOR. WITH LEFT AC AND LEFT FOREARM IV LINE INFUSING NS AT 75 ML/HR. PT NOTED TO HAVE R BKA WITH STUMP AND LEFT TOES AMPUTATED. ALL SAFETY MEASURES IN PLACE: ALL DUE MEDS GIVEN, KEPT DRY AND CLEAN, BED LOCKED IN LOWEST POSITION, BED ALARM ON, 3 SIDE RAILS UP, CALL LIGHT WITHIN REACH. WILL ENDORSE TO AM SHIFT NURSE.
[2022-08-04 08:00] VITALS: BP 139/67
[2022-08-04] MEDS: BLOOD SUGAR DIAGNOSTIC 1 EACH STRIP VI SCH ×4 (08:30→21:47)
[2022-08-04] MEDS: GABAPENTIN 100 MG CAPSULE PO SCH ×3 (08:36→17:22)
[2022-08-04] MEDS: ASPIRIN 81 MG TAB.CHEW PO SCH (08:36)
[2022-08-04] MEDS: DOCUSATE SODIUM 100 MG CAPSULE PO SCH ×2 (08:36→17:22)
[2022-08-04] MEDS: methylPREDNISolone SOD SUCC 125 MG/2ML VIAL IV SCH (08:37)
[2022-08-04] MEDS: PANTOPRAZOLE 40 MG TABLET.DR PO SCH (08:37)
[2022-08-04] MEDS: METFORMIN 500 MG TABLET PO SCH ×2 (08:37→18:40)
[2022-08-04] MEDS: TICAGRELOR 90 MG TABLET PO SCH ×2 (08:55→17:30)
[2022-08-04] MEDS: APIXABAN 5 MG TABLET PO SCH (08:56)
[2022-08-04 12:00] VITALS: BP 140/67
[2022-08-04] MEDS: TENOFOVIR DISOPROXIL FUMARATE 300 MG TABLET PO SCH (13:03)
[2022-08-04] MEDS: CEFEPIME 2 GM in IV D5W 100 ML IV SCH (13:04)
[2022-08-04] MEDS: LAMIVUDINE/ZIDOVUDINE 150-300 1 TAB TABLET PO SCH ×2 (13:12→21:29)
[2022-08-04] MEDS: IV NS 0.9% 1,000 ML IV PRN (15:45)
[2022-08-04 16:00] VITALS: BP 120/62
[2022-08-04] MEDS: MORPHINE SULFATE INJ 2 MG/ML DISP.SYRIN IV PRN (16:48)
--- NOTE | 2022-08-04 17:00 | NUR ---
RN NOTE APIXABAN WAS SCANNED TO ADMINISTER, BUT LAZARA THE RN WHO WANTED TO COSIGN MISTAKENLY PRESSED A WRONG BOTTOM AND WE COULD NOT RESCAN THE MED. THE MESAAGE WAS THAT THE UNDOCUMENTED MEDICATION CANNOT BE ADMINISTER. MEDICATION WAS GIVEN TO THE PATIENT BUT IN THE SYSTEM IT SHOWS RED. THE NEWS ANCHOR NURSE IS INFORMED.
--- NOTE | 2022-08-04 19:00 | NUR ---
RN CLOSING NOTE PATIENT REMAINED STABLE THROUGHOUT THE SHIFT. BREATHING UNLABORED AND NOT IN ANY FORM OF DISTRESS. TOLERATES OXYGEN VIA NASAL CANNULA AT 4L/MIN. SINUS RHYTHM ON GLUE MOUNTER OPERATOR. ALL IV LINES INTACT AND PATENT. ALL SAFETY MEASUREMENTS ARE IN PLACE. WILL ENDORSE TO ART MODEL NURSE.
--- NOTE | 2022-08-04 19:30 | NUR ---
EMBROIDERER OPENING NOTE RECEIVED PT AWAKE IN BED. A/O X3 AND ABLE TO MAKE NEEDS KNOWN. PT ON O2 @ 4 LPM VIA NC, TOLERATING WELL. NO SOB OR S/S OF RESPIRATORY DISTRESS. ON EXTERNAL LABOR RELATIONS DIRECTOR READING SR. IV ACCESS LFA 20 GAUGE AND LAC 20 GAUGE, INTACT AND PATENT, RUNNING NS @ 75 ML/HR. SAFETY PRECAUTIONS IN PLACE. BED IN LOWEST LOCKED POSITION, HOB ELEVATED, SIDE RAILS UP X3, AND CALL LIGHT AND TABLE WITHIN REACH. ALL NEEDS MET AT THIS TIME.
--- NOTE | 2022-08-04 19:40 | NUR ---
RN NOTE MORPHINE 1 MG WAS WASTED LATE AROUND 1745 [place] SHORT CHARGE NURSE WAS THE WITNESS FOR THE MEDICATION WASTE.
[2022-08-04 20:00] VITALS: BP 129/77
[2022-08-04] MEDS: ATORVASTATIN 40 MG TABLET PO SCH (21:29)
[2022-08-04] MEDS: FLUCONAZOLE (100 MG) 100 MG TABLET PO SCH (21:29)
[2022-08-05] VITALS: BP 130/63
[2022-08-05] MEDS: CEFEPIME 2 GM in IV D5W 100 ML IV SCH ×2 (01:16→14:00)
[2022-08-05 04:00] VITALS: BP 136/60
[2022-08-05] MEDS: IV NS 0.9% 1,000 ML IV PRN (04:48)
--- NOTE | 2022-08-05 06:43 | NUR ---
GARBAGE COLLECTOR DRIVER CLOSING NOTE PT AWAKE IN BED. A/O X3 AND ABLE TO MAKE NEEDS KNOWN. PT ON O2 @ 4 LPM VIA NC, TOLERATING WELL. NO SOB OR S/S OF RESPIRATORY DISTRESS. ON EXTERNAL SHOW CARD WRITER READING SR WITH BBB HR 68 BPM. IV ACCESS LFA 20 GAUGE AND LAC 20 GAUGE, INTACT AND PATENT, RUNNING NS @ 75 ML/HR. ALL DUE MEDS GIVEN ORDERED. TURNED AND REPOSITIONED Q2H. R BKA DRESSING C/D/I. SAFETY PRECAUTIONS IN PLACE AT ALL TIMES. BED IN LOWEST LOCKED POSITION, HOB ELEVATED, SIDE RAILS UP X3, AND CALL LIGHT AND TABLE WITHIN REACH. ALL NEEDS MET AT THIS TIME AND WILL ENDORSE TO ONCOMING NURSE FOR EDWARD.
--- NOTE | 2022-08-05 07:25 | NUR ---
COMMUNITY SUPPORT WORKER OPENING NOTE PATIENT ASLEEP IN BED. EASILY AROUSABLE. PATIENT IS ALERT AND ORIENTED X3. PATIENT IS ON O2 VIA 4L NASAL CANNULA TOLERATING AT 92%.NO SIGNS OF PAIN OR DISCOMOFRT. PATIENT IS ON TELE MONITOR CURRENTLY SINUS RHYTM. PATIENT HAS IV ACCESS LEFT FOREARM 20 GUAGE LEFT AC 20 GUAGE. IV INTACT AND PATIENT. 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
[2022-08-05] MEDS: PANTOPRAZOLE 40 MG TABLET.DR PO SCH (07:30)
[2022-08-05] MEDS: BLOOD SUGAR DIAGNOSTIC 1 EACH STRIP VI SCH ×4 (07:47→22:24)
[2022-08-05 08:00] VITALS: BP 145/68
[2022-08-05] MEDS: SULFAMETHOXAZOLE/TRIMETHOPRIM 15 ML in IV D5W 500 ML IV SCH ×3 (10:08→23:31)
[2022-08-05] MEDS: ASPIRIN 81 MG TAB.CHEW PO SCH (10:09)
[2022-08-05] MEDS: GABAPENTIN 100 MG CAPSULE PO SCH ×3 (10:09→17:00)
[2022-08-05] MEDS: LAMIVUDINE/ZIDOVUDINE 150-300 1 TAB TABLET PO SCH ×2 (10:09→21:00)
[2022-08-05] MEDS: DOCUSATE SODIUM 100 MG CAPSULE PO SCH ×2 (10:09→17:00)
[2022-08-05] MEDS: TENOFOVIR DISOPROXIL FUMARATE 300 MG TABLET PO SCH (10:10)
[2022-08-05] MEDS: predniSONE 20 MG TABLET PO SCH (10:10)
[2022-08-05] MEDS: METFORMIN 500 MG TABLET PO SCH ×2 (10:14→18:00)
[2022-08-05] MEDS: TICAGRELOR 90 MG TABLET PO SCH ×2 (11:16→17:00)
[2022-08-05] MEDS: APIXABAN 5 MG TABLET PO SCH ×2 (11:17→17:00)
[2022-08-05 12:00] VITALS: BP 135/79
--- NOTE | 2022-08-05 12:47 | NUR ---
NOTIFIED FAMILY REFUSING GTUBE. WHEN HE IS GIVEN FOOD OR MEDICATIONS HE ASPIRATES AND THREW UP HIS LUNCH. HIS BLOOD SUGAR IS 148. ASKED MD IF INSULIN CAN BE HELD DUE TO POOR APPETITE OKAY TO HOLD INSULIN
[2022-08-05] MEDS: EMTRICITABINE 200 MG CAPSULE PO SCH (13:00)
--- NOTE | 2022-08-05 13:57 | NUR ---
NOTIFIED DR. KING THAT PATIENT HAS TROUBLE TAKING FOOD AND MEDICATIONS DOWN. ASKED IF I CAN HOLD EMTRIVA AND NEURONTIN. MD RESPONDED PATIENT FAILED SWALLOW EVAL AND REFUSING PEG. MD SAID OK TO HOLD MEDICATIONS
[2022-08-05] MEDS: MICAFUNGIN SODIUM 100 MG in IV NS 0.9% 100 ML IV SCH (14:00)
[2022-08-05] MEDS: MORPHINE SULFATE INJ 2 MG/ML DISP.SYRIN IV PRN ×2 (14:41→22:08)
[2022-08-05 16:00] VITALS: BP 122/72
--- NOTE | 2022-08-05 17:53 | NUR ---
NOTIFIED DR. DYER IF PATIENT CAN BE ON DIFFERENT FORM OF BLOOD THINNERS DUE TO PATIENT ASPIRATING ON FOOD AND MEDICATIONS. HELD EVENING MEDICATIONS DUE TO ASPIRATION AND NOTIFIED MD SAID TO ORDER LOVENOX 40 MG SQ DAILY.
--- NOTE | 2022-08-05 18:08 | NUR ---
NOTIFED [facility] IF EVENING MEDICATIONS CAN BE HELD DUE TO HIGH ASPIRATION, CHOKING AND VOMITING ON FOOD AND MEDICATIONS
--- NOTE | 2022-08-05 18:20 | NUR ---
blood sugar 192 held insulin due to poor appetite, throwing up his food and high risk for aspiration
--- NOTE | 2022-08-05 19:20 | NUR ---
RN NOTES: RECEIVED PATIENT AWAKE ON BED, PLAYING WITH HIS PHONE A/OX2-3 WITH O2 AT 3L/MIN, WITH IVF OF NS AT 75 ML/HR, HE HAS RIGHT BKA,DRESSING DRY AND INTACT, LEFT TOES AMPUTATED,HIGH RISK FOR ASPIRATION, PER ENDORSEMENT CANT HARDLY SWALLOW AND TOLERATED ORAL MEDICATION, HE COUGH AND HAD EPISODE OF VOMITING, DOCTOR WAS NOTIFIED, FAMILY REFUSED FOR NGT AND PEG TUBE FEEDING, IV CANNULA ON LFA G320, LAC G#22, NS AT 75ML/HR ONGOING.ORIENTED TO UNIT AND STAFF.
[2022-08-05 20:00] VITALS: BP 120/71
--- NOTE | 2022-08-05 20:18 | NUR ---
TAPE DUPLICATOR CLOSING NOTE PATIENT ASLEEP IN BED. EASILY AROUSABLE. PATIENT IS ALERT AND ORIENTED X3. PATIENT IS ON O2 VIA 4L NASAL CANNULA TOLERATING AT 92%.NO SIGNS OF PAIN OR DISCOMOFRT. PATIENT IS ON TELE MONITOR CURRENTLY SINUS RHYTM. ALL NEEDS MET. KEPT CLEAN AND DRY. PATIENT HAS IV ACCESS LEFT FOREARM 20 GUAGE LEFT AC 20 GUAGE. IV INTACT AND PATIENT. 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
[2022-08-05] MEDS: ENOXAPARIN SODIUM 40 MG/0.4 ML DISP.SYRIN SQ SCH (21:47)
--- NOTE | 2022-08-05 21:48 | NUR ---
RN NOTES: ORAL MEDICATION NOT GIVEN, PATIENT HIGH RISK FOR ASPIRATION, NOT SAFE TO GIVE, HE HAS EPISODE OF COUGHING WHEN TAKING MEDICATION THIS MORNING, MD AWARE, AND VOMITED THIS MORNING UPON GIVING OF FOOD.
[2022-08-05] MEDS: ATORVASTATIN 40 MG TABLET PO SCH (22:00)
--- NOTE | 2022-08-05 22:02 | NUR ---
RN NOTES: UPON GIVING OF LOVENOX, RN EXPLAINED IT TO THE PATIENT, HE REFUSED FOR INJECTION , DESPITE EXPLANATION OF THE RISK AND BENEFITS OF THE MEDICATION , HE SAID"I DONT WANT IT", MEDICATION NOT GIVEN, MEDICATION WASTED WITH ANOTHER RN/KAE..
--- NOTE | 2022-08-05 22:09 | NUR ---
RN NOTES: REQUEST FOR PAIN MEDICATION, HE HAS PAIN 8/10, GIVEN AFTER NON PHARMACOLOGIC INTERVENTION IS INEFFECTIVE.
--- NOTE | 2022-08-05 22:16 | NUR ---
RN NOTES: 2200 -- BLOOD SUGAR CHECKED-99, NO INSULIN PER SCALE, WILL CONTINUE TO MONITOR FOR ANY SIGN OF HYPOGLYCEMIA.
[2022-08-06] VITALS: BP 151/77
--- NOTE | 2022-08-06 00:08 | NUR ---
RN NOTES: TURNED AND REPOSITIONED, ABLE TO SLEEP AND REST.PAIN MEDICATION WAS EFFECTIVE.
[2022-08-06] MEDS: CEFEPIME 2 GM in IV D5W 100 ML IV SCH ×2 (01:04→12:20)
[2022-08-06] MEDS: IV NS 0.9% 1,000 ML IV PRN ×2 (02:10→17:35)
--- NOTE | 2022-08-06 02:11 | NUR ---
RN NOTES: ASLEEP IN THE NIGHT, NO PAIN OR DISCOMFORT, IVF CONSUMED, REPLACED WITH DYLON BAG OF NS AT 75 ML/HR, UNABLE TO SCAN, MANUALLY ENTERED BARCODE.
[2022-08-06 04:00] VITALS: BP 127/69
--- NOTE | 2022-08-06 07:30 | NUR ---
RN OPENING NOTE PATIENT ASLEEP IN BED. EASILY AROUSABLE. PATIENT IS ALERT AND ORIENTED X2-3. PATIENT IS ON O2 VIA 4L NASAL CANNULA TOLERATING AT 100%.NO SIGNS OF PAIN OR DISCOMOFRT. PATIENT IS ON TELE MONITOR CURRENTLY SINUS RHYTM. PATIENT HAS IV ACCESS LEFT FOREARM 20 GUAGE LEFT AC 20 GUAGE. IV INTACT AND PATIENT. 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 WILL CONTINUE MONITORING THE PATIENT THROUGHOUT THE SHIFT.
--- NOTE | 2022-08-06 07:31 | NUR ---
RN NOTES: -MORNING CARE DONE, SLIGHT SPONGE BATH, CLEAN AND CHANGE,ON O2 AT 4LPM, REMAINS A/OX2-3, TELE MONITOR SR-69, REFUSED FOR DRESSING CHANGE HE REQUEST TO DO IT LATER, HIGH RISK FOR ASPIRATION, FOR CXR THIS MORNING, ENDORSED TO NEXT SHIFT TO DO SWALLOW EVALUATION AGAIN AND CHECK IF ABLE TO DO.
[2022-08-06 08:00] VITALS: BP 173/75
[2022-08-06] MEDS: BLOOD SUGAR DIAGNOSTIC 1 EACH STRIP VI SCH ×4 (08:26→23:00)
[2022-08-06] MEDS: SULFAMETHOXAZOLE/TRIMETHOPRIM 15 ML in IV D5W 500 ML IV SCH ×3 (08:26→23:00)
[2022-08-06] MEDS: TENOFOVIR DISOPROXIL FUMARATE 300 MG TABLET PO SCH (08:27)
[2022-08-06] MEDS: METFORMIN 500 MG TABLET PO SCH ×2 (08:27→18:21)
[2022-08-06] MEDS: ASPIRIN 81 MG TAB.CHEW PO SCH (08:28)
[2022-08-06] MEDS: DOCUSATE SODIUM 100 MG CAPSULE PO SCH ×2 (08:29→16:13)
[2022-08-06] MEDS: predniSONE 20 MG TABLET PO SCH (08:29)
[2022-08-06] MEDS: PANTOPRAZOLE 40 MG TABLET.DR PO SCH (08:30)
[2022-08-06] MEDS: EMTRICITABINE 200 MG CAPSULE PO SCH (08:31)
[2022-08-06] MEDS: LAMIVUDINE/ZIDOVUDINE 150-300 1 TAB TABLET PO SCH ×2 (08:31→21:52)
[2022-08-06] MEDS: MORPHINE SULFATE INJ 2 MG/ML DISP.SYRIN IV PRN ×3 (10:04→22:32)
[2022-08-06 12:00] VITALS: BP 160/63
[2022-08-06] MEDS: MICAFUNGIN SODIUM 100 MG in IV NS 0.9% 100 ML IV SCH (12:20)
[2022-08-06 16:00] VITALS: BP 153/72
[2022-08-06] MEDS: INSULIN REGULAR, HUMAN 100 UNIT/ML 3 ML VIAL SQ PRN (16:18)
--- NOTE | 2022-08-06 19:53 | NUR ---
ENVIRONMENTAL AIR SPECIALIST OPENING NOTE RECEIVED PATIENT IN BED, AWAKE, ALERT/ORIENTED X 3. WITH O2 THERAPY VIA NASAL CANNULA AT 4L/MIN. TOLERATING WELL. NO S/SX OF ACUTE RESPIRATORY DISTRESS NOTED AT THIS TIME. SHOWING SINUS RHYTHM ON TELE MONITOR. WITH LFA INFUSING NS AT 75 ML/HR. PT NOTED TO HAVE R BKA WITH STUMP AND LEFT TOES AMPUTATED. ALL SAFETY MEASURES IN PLACE: BED LOCKED IN LOWEST POSITION, BED ALARM ON, 3 SIDE RAILS UP, CALL LIGHT WITHIN REACH. WILL CONTINUE TO MONITOR THROUGHOUT SHIFT.
[2022-08-06 20:00] VITALS: BP 171/71
[2022-08-06 20:26] LABS: CALCIUM, SERUM 7.9 mg/dL (8.5-10.1); CREATININE 0.8 mg/dL (0.6-1.3); POTASSIUM 2.9 mmol/L (3.5-5.1)
[2022-08-06 20:39] LABS: HEMATOCRIT 30 % (39-51); HEMOGLOBIN 9.5 g/dL (13.5-17.5); LYMPHOCYTES # (AUTO) 0.5 K/uL (0.8-4.8); LYMPHOCYTES % (AUTO) 10.3 % (20.0-44.0); MEAN CORPUSCULAR HGB CONC 32 g/dl (31.0-36.0); MEAN CORPUSCULAR VOLUME 78 fL (80-96); MONOCYTES % (AUTO) 0.9 % (2.0-12.0); NEUTROPHILS # (AUTO) 4.2 K/uL (1.8-8.9); NEUTROPHILS % (AUTO) 88.8 % (43.0-81.0); PLATELET COUNT (AUTO) 274 K/uL (150-450); RED BLOOD CELL COUNT(AUTO) 3.86 MIL/uL (4.5-6.0); WHITE BLOOD COUNT (AUTO) 4.8 K/uL (4.3-11.0)
--- NOTE | 2022-08-06 21:05 | NUR ---
RN NOTE NOTED PATIENT BP AT 171/71 HR AT 57. INFORMED SETTER OFF NOREEN, ORDERED 20 MG HYDRALAZINE PO ONCE, ORDER TAKEN AND CARRIED OUT. ALL DUE MEDS GIVEN, PT TOLERATED WELL.
[2022-08-06] MEDS ORDERED: hydrALAZINE HCL 10 MG TABLET PO ONE (21:30)
[2022-08-06] MEDS: ATORVASTATIN 40 MG TABLET PO SCH (21:52)
--- NOTE | 2022-08-06 22:00 | NUR ---
RN NOTES 2200 -- BLOOD SUGAR CHECKED-93, NO INSULIN PER SCALE, WILL CONTINUE TO MONITOR FOR ANY SIGN OF HYPOGLYCEMIA.
[2022-08-07] VITALS: BP 172/74
[2022-08-07] MEDS: CEFEPIME 2 GM in IV D5W 100 ML IV SCH ×2 (00:28→13:38)
--- NOTE | 2022-08-07 03:00 | NUR ---
RN NOTE NOTED BP STILL HIGH AT THIS TIME AT 172/74 HR AT 59. CHECKED ON DR. VELASCO DAILY PROGRESS NOTES HE ORDERED HYDRALAZINE 10 MG IV Q4HR PRN FOR SBP>160. COLLEGE SERVICE OFFICER NOREEN MADE AWARE AND ASKED TO CONTINUE WITH THIS ORDER. SHE SAID OKAY TO PLACE THE ORDER. TAKEN AND CARRIED OUT. WILL CONT TO MONITOR PT.
[2022-08-07] MEDS: ENOXAPARIN SODIUM 40 MG/0.4 ML DISP.SYRIN SQ SCH ×2 (03:32→03:41)
[2022-08-07 04:00] VITALS: BP 104/60
[2022-08-07] MEDS ORDERED: hydrALAZINE HCL IV 20 MG VIAL IV PRN (04:00)
--- NOTE | 2022-08-07 06:37 | NUR ---
OFFICE ELECTRICIAN CLOSING NOTE PATIENT IN BED, AWAKE, ALERT/ORIENTED X 3. WITH O2 THERAPY VIA NASAL CANNULA AT 4L/MIN CONNECTED TO HUMIDIFIER. TOLERATING WELL. NO S/SX OF ACUTE RESPIRATORY DISTRESS NOTED AT THIS TIME. SHOWING SR AT 97 ON TELE MONITOR. WITH LEFT AC AND LEFT FOREARM IV LINE INFUSING NS AT 75 ML/HR. PT NOTED TO HAVE R BKA WITH STUMP AND LEFT TOES AMPUTATED. ALL SAFETY MEASURES IN PLACE: ALL DUE MEDS GIVEN, KEPT DRY AND CLEAN, BED LOCKED IN LOWEST POSITION, BED ALARM ON, 3 SIDE RAILS UP, CALL LIGHT WITHIN REACH. WILL ENDORSE TO AM SHIFT NURSE.
[2022-08-07] MEDS: SULFAMETHOXAZOLE/TRIMETHOPRIM 15 ML in IV D5W 500 ML IV SCH (08:34)
[2022-08-07] MEDS: BLOOD SUGAR DIAGNOSTIC 1 EACH STRIP VI SCH ×2 (08:42→12:00)
[2022-08-07] MEDS: PANTOPRAZOLE 40 MG TABLET.DR PO SCH (08:44)
[2022-08-07] MEDS: EMTRICITABINE 200 MG CAPSULE PO SCH (08:45)
[2022-08-07] MEDS: TENOFOVIR DISOPROXIL FUMARATE 300 MG TABLET PO SCH (08:45)
[2022-08-07] MEDS: LAMIVUDINE/ZIDOVUDINE 150-300 1 TAB TABLET PO SCH (08:45)
[2022-08-07] MEDS: ASPIRIN 81 MG TAB.CHEW PO SCH (08:45)
[2022-08-07] MEDS: predniSONE 20 MG TABLET PO SCH (08:45)
[2022-08-07] MEDS: DOCUSATE SODIUM 100 MG CAPSULE PO SCH (08:46)
[2022-08-07] MEDS: METFORMIN 500 MG TABLET PO SCH (08:47)
[2022-08-07] MEDS ORDERED: EMTR200C4 PO (08:47)
[2022-08-07] MEDS ORDERED: MICA100V3 IV (08:47)
[2022-08-07] MEDS ORDERED: TENO300T5 PO (08:47)
[2022-08-07] MEDS ORDERED: LAMI1TAB PO (08:47)
[2022-08-07] MEDS ORDERED: SULF1TAB47 PO (08:47)
[2022-08-07] MEDS ORDERED: FLUC200T PO (08:47)
[2022-08-07] MEDS ORDERED: PRED20TA PO (12:39)
[2022-08-07] MEDS: MICAFUNGIN SODIUM 100 MG in IV NS 0.9% 100 ML IV SCH (13:38)
--- NOTE | 2022-08-07 17:00 | NUR ---
RN NOTE PT D/C TO SNF. PT IN GOOD CONDITION. V/S STABLE. SPOKE WITH RN FROM [place]. FOR REPORT AND [place]WARD. WOUND CARE TO R BKA DONE. V/S STABLE. D/C INSTRUCTIONS GIVEN TO EMT PERSONNEL.
== END 2022-08-07 16:58 | DRG 974 ==
LOC: ER 22:36 → TELE1 07-28 02:32
PROVIDERS: ADMIT Legal Medicine; ATTEND Legal Medicine
DX: A41.59 Other Gram-negative sepsis (principal); E43 Unspecified severe protein-calorie malnutrition; B20 Human immunodeficiency virus [HIV] disease; B59 Pneumocystosis; J69.0 Pneumonitis due to inhalation of food and vomit; N17.0 Acute kidney failure with tubular necrosis; J96.01 Acute respiratory failure with hypoxia; G92.8 Other toxic encephalopathy; E87.1 Hypo-osmolality and hyponatremia; B49 Unspecified mycosis; E87.2 Acidosis; Z86.73 Personal history of transient ischemic attack (TIA), and cerebral infarction without residual deficits; Z20.822 Contact with and (suspected) exposure to COVID-19; E11.51 Type 2 diabetes mellitus with diabetic peripheral angiopathy without gangrene; R13.10 Dysphagia, unspecified; Z79.84 Long term (current) use of oral hypoglycemic drugs; Z79.4 Long term (current) use of insulin; Z79.82 Long term (current) use of aspirin; Z79.899 Other long term (current) drug therapy; Z79.01 Long term (current) use of anticoagulants; E78.5 Hyperlipidemia, unspecified; E87.6 Hypokalemia; E88.09 Other disorders of plasma-protein metabolism, not elsewhere classified; F03.90 Unspecified dementia, unspecified severity, without behavioral disturbance, psychotic disturbance, mood disturbance, and anxiety; R65.20 Severe sepsis without septic shock; F09 Unspecified mental disorder due to known physiological condition; E11.65 Type 2 diabetes mellitus with hyperglycemia; Y95 Nosocomial condition; I10 Essential (primary) hypertension; Z89.511 Acquired absence of right leg below knee; M62.50 Muscle wasting and atrophy, not elsewhere classified, unspecified site; Z89.432 Acquired absence of left foot
CPT/HCPCS: 36415; 71045-TC; 76770-TC; 80048-TC; 80061-TC; 80076-TC; 80202-TC; 81001; 82962-TC; 83605-TC; 83735-TC; 83880; 84484-TC; 85025-TC; 85730-TC; 86360; 87040-TC; 87081-TC; 87086-TC; 87186-TC; 92526; 92611-TC; 93307-TC; 94799-TC; 97112-TC; 97530-TC; A4216; A6253; C9803; G0378; J0360; J0692; J1450; J1650; J1815; J2248; J2270; J2543; J2930; J3370; J3490; J7030; J7050; J7060; U0003